=== PATIENT | female | born 1990 | race Caucasian/White ===

== ENCOUNTER 2021-09-17 16:35 | Outpatient (CLI) | payer OTHER, SELFPAY ==
--- NOTE | ~2021-09-17 | US_ITS ---
EXAMINATION: US venous doppler [facility] DATE: 09/17/2021 17:36 INDICATION: Bilateral lower limb swelling TECHNIQUE: Navarro scale images without and with compression and Doppler images of the bilateral lower e xtremity veins were obtained. COMPARISON: None FINDINGS: The right common femoral vein, profunda femoral vein, femoral vein, popliteal vein, peroneal trunk, p osterior tibial veins, and greater saphenous vein are patent. The left common femoral vein, profunda femoral vein, femoral vein, popliteal vein, peroneal trunk, po sterior tibial veins, and greater saphenous vein are patent. IMPRESSION: 1. Patent bilateral lower extremity veins. No evidence of deep venous thrombosis. Reviewed, dictated and finalized at location F. IMPRESSION: 1. Patent bilateral lower extremity veins. No evidence of deep venous thrombosi s.
== END 2021-09-17 16:36 | disposition home or self-care (01) ==
LOC: ANHIMG 16:44
PROVIDERS: PCP Family Medicine; Visit Provider Obstetrics & Gynecology
DX: R22.43 Localized swelling, mass and lump, lower limb, bilateral (principal)
CPT/HCPCS: 93970

== ENCOUNTER 2022-04-05 05:32 | Inpatient (IN) | payer OTHER, SELFPAY ==
[2022-04-05] VITALS (64 sets, daily range): BP systolic 75–155; BP diastolic 33–86; PULSE 60–170; TEMP 36.6; O2SAT 97–100; BMI 31.0
[2022-04-05 07:10] LABS: Basophils Percent Auto 0.2 % (0.2-1.2); Eosinophils Absolute Auto 0.1 K/mm3 (0-0.3); Eosinophils Percent Auto 0.5 % (0-4.4); Hematocrit 37.2 % (37.0-47.0); Hemoglobin 12.7 g/dL (12.0-15.0); Immature Granulocyte Absolute 0.09 K/mm3 (0.00-0.031); Immature Granulocyte Percent A 0.8 % (0-0.5); Lymphocytes Absolute Auto 2.08 K/mm3 (0.9-3.2); Lymphocytes Percent Auto 18.7 % (18.3-44.2); Mean Corpuscular HGB Conc 34.1 g/dl (32-36); Mean Corpuscular Hemoglobin 30.1 pg (26-34); Mean Corpuscular Volume 88.2 fl (80-100); Mean Platelet Volume 9.7 fl (7.4-10.4); Monocytes Percent Auto 8.6 % (2.6-8.5); Neutrophils Absolute Auto 7.9 K/mm3 (1.3-6.7); Neutrophils Percent Auto 71.2 % (45.5-73.1); Platelet Count Result 267 k/mm3 (150-375); Red Blood Count 4.22 M/mm3 (4.2-5.4); Red Cell Distribution Width 12.7 % (11.5-14.5); White Blood Count 11.1 K/mm3 (4.5-10.0)
--- NOTE | 2022-04-05 07:26 | PM.IMHP ---
H&P: HPI History of Present Illness Date/Time: 04/05/22 07:26 Chief Complaint: induction of labor Narrative: Adelita is a G1 at 39.6 for elective IOL. complicated by GBS pos, hypothyroidism, epilepsy (no sz this ), and COVID during . Review of Systems Review of Systems: All systems reviewed & are unremarkable except as noted in HPI and below PMFSH Family History Family History (Updated 03/08/22 @ 12:41 by Brenda Boss RN) Father Family history of seizure disorder Hypertension Grandparent Diabetes mellitus Social History Social History Smoking status: Former smoker Smoking end date: 04/18/13 Alcohol intake: current Substance use: never Spiritual care concerns: No Meds Home Medications and Allergies Home Medications Medication Instructions Recorded Confirmed Type aspirin 81 mg tablet,delayed 81 mg PO DAILY 03/08/22 03/08/22 History release (Isaac Low Dose Aspirin) levetiracetam 500 mg 500 mg PO BID 03/08/22 03/08/22 History tablet,extended release 24 hr (Keppra XR) levothyroxine 25 mcg capsule 25 mcg PO DAILY 03/08/22 03/08/22 History prenat.vits,dane,nsk-yacf-lgxbv 1 tablet PO DAILY 03/08/22 03/08/22 History vitamin K2 100 mcg capsule 100 mcg PO DAILY 03/08/22 03/08/22 History Allergies Allergy/AdvReac Type Severity Reaction Status Date / Time No Known Allergies Allergy Unknown Verified 03/08/22 12:35 Exam Const: General: no acute distress Resp: Effort & Inspection: normal respiratory effort Auscultation: clear to auscultation bilaterally Cardio: Rate: regular rate Rhythm: regular rhythm GI: GI Palp: Yes Soft to palpation Extrem: General: normal to inspection H&P: Results Labs Labs: Short CBC 04/05/22 Range/Units 06:46 WBC 11.1 H (4.5-10.0) K/mm3 Hgb 12.7 (12.0-15.0) g/dL Hct 37.2 (37.0-47.0) % Plt Count 267 (150-375) k/mm3 Assessment and Plan Assessment and plan (1) Encounter for induction of labor: Code(s): Z34.90 - Encounter for supervision of normal , unspecified, unspecified trimester Status: Acute (2) Epilepsy affecting , antepartum: Code(s): O99.350 - Diseases of the nervous system complicating , unspecified trimester; G40.909 - Epilepsy, unspecified, not intractable, without status epilepticus Status: Acute (3) Hypothyroidism: Code(s): E03.9 - Hypothyroidism, unspecified Status: Acute Plan cervidil GBS pos FHT category 1
[2022-04-05] MEDS: DINOPROSTONE 10 MG VAG INSERT VAGINAL (07:36)
[2022-04-05 09:18] LABS: Rapid Plasma Reagin Non-Reactive (NonReactive)
--- NOTE | 2022-04-05 09:43 | WPDANESEPP ---
Anes - Eval Pre Procedure Procedure: labor epidural Date/Time: 04/05/22 09:43 Surgeon: curt Preop Diagnosis: pain during labor Pre Op Diagnosis: IOL Patient Data Age: 31 Gender: F Height: 1.57 m Weight: 77 kg Last Vital Signs O2 Del Method Room Air 04/05/22 08:51 Allergies Allergy/AdvReac Type Severity Reaction Status Date / Time No Known Allergies Allergy Unknown Verified 03/08/22 12:35 Home Medications Medication Instructions Recorded Confirmed Type aspirin 81 mg tablet,delayed 81 mg PO DAILY 03/08/22 04/05/22 History release (Isaac Low Dose Aspirin) levetiracetam 500 mg 500 mg PO BID 03/08/22 04/05/22 History tablet,extended release 24 hr (Keppra XR) levothyroxine 25 mcg capsule 25 mcg PO DAILY 03/08/22 04/05/22 History prenat.vits,dane,gaa-epwv-jrowl 1 tablet PO DAILY 03/08/22 04/05/22 History vitamin K2 100 mcg capsule 100 mcg PO DAILY 03/08/22 04/05/22 History Laboratory Tests 04/05/22 04/05/22 04/05/22 06:46 06:46 06:46 WBC 11.1 K/mm3 H K/mm3 (4.5-10.0) RBC 4.22 M/mm3 M/mm3 (4.2-5.4) Hgb 12.7 g/dL g/dL (12.0-15.0) Hct 37.2 % % (37.0-47.0) MCV 88.2 fl fl (80-100) MCH 30.1 pg pg (26-34) MCHC 34.1 g/dl g/dl (32-36) RDW 12.7 % % (11.5-14.5) Plt Count 267 k/mm3 k/mm3 (150-375) MPV 9.7 fl fl (7.4-10.4) Immature Gran % (Auto) 0.8 % H % (0-0.5) Neut % (Auto) 71.2 % % (45.5-73.1) Lymph % (Auto) 18.7 % % (18.3-44.2) [place] % (Auto) 8.6 % H % (2.6-8.5) Eos % (Auto) 0.5 % % (0-4.4) Baso % (Auto) 0.2 % % (0.2-1.2) Lymph # (Auto) 2.08 K/mm3 K/mm3 (0.9-3.2) [place] # (Auto) 1.0 K/mm3 H K/mm3 (0.1-0.6) Eos # (Auto) 0.1 K/mm3 K/mm3 (0-0.3) Baso # (Auto) 0.0 K/mm3 K/mm3 (0.0-0.1) Abs Immat Gran (auto) 0.09 K/mm3 H K/mm3 (0.00-0.031) Absolute Neuts (auto) 7.9 K/mm3 H K/mm3 (1.3-6.7) Absolute Nucleated RBC 0.0 K/mm3 K/mm3 (0.0-0.012) Nucleated RBC % 0.0 % % (0.0-0.2) RPR Non-reactive (NonReactive) Blood Type A Positive Antibody Screen Negative Patient hx anesthesia problems: none Family hx anesthesia problems: none Results Review: All pre-operative results and documents have been reviewed as part of the pre-operative evaluation. [facility] Family History Family History (Updated 03/08/22 @ 12:41 by Brenda Boss RN) Father Family history of seizure disorder Hypertension Grandparent Diabetes mellitus Social History Social History Smoking packs per day: 0.5 Smoking cigarettes per day: 10.0 Years smoked: 10 Smoking pack-years: 5.00 Smoking status: Former smoker Tobacco type: cigarettes Second hand tobacco smoke exposure: No Smoking end date: 04/18/13 Alcohol intake: current Substance use: never Lack of Transportation: No Lack of Food: Never True Current Housing: I Have Housing Concerned About Future Housing: No Difficulty Paying Gas/Electric Bills: No Difficulty Paying for Meds: No Currently Unemployed: No Education: High School Diploma/GED Difficulty w/ Childcare or Family Care: No Spiritual care concerns: No Exam Day of Procedure 04/05/22 09:43
[2022-04-05] MEDS: FLUCONAZOLE 150 MG TABLET PO (13:17)
[2022-04-05] MEDS: AMPICILLIN 2 GM/NS 100 ML 2 GM/100 ML BAG IVPB (18:57)
[2022-04-05] MEDS: LACTATED RINGERS 1,000 ML 125 ML IV CONT ×3 (18:58→22:45)
[2022-04-05] MEDS: ONDANSETRON INJ 4 MG/2 ML VIAL IV PUSH (19:55)
--- NOTE | 2022-04-05 20:31 | PHAR ---
PT'S HOME MED LEVETIRACETAM ER 500 MG TABS VERIFIED BY PHARMACY
--- NOTE | 2022-04-05 21:04 | WPDANESEFPP ---
Anes - Eval Final PreProcedure Day of Procedure 04/05/22 21:04 Patient weight: normal Heart: regular rate and rhythm Lungs: clear to auscultation Airway: Mallampati scale class II Neurological: alert and oriented Last oral intake: 2 hours ASA classification: III Emergent: no Anesthetic plan: proceed Anesthesia type and monitoring: regional spinal Results Review: All pre-operative results and documents have been reviewed as part of the pre-operative evaluation. Informed Consent: The patient's anesthetic plan and its attendant risks and benefits were discussed with the patient/family/POA. Questions were solicited and answers provided to the satisfaction of the patient/family/POA.
--- NOTE | 2022-04-05 22:41 | WPDANESEPN ---
Anes - Epidural Procedure Note Date/Time: 04/05/22 22:41 Consent: I have discussed with the patient/family/POA, the placement of an epidural catheter and the use of epidural narcotic/local anesthetic for labor analgesia and/or postoperative pain management, including associated potential risks, benefits, complications and side effects. I have discussed alternative methods of labor analgesia and/or postoperative pain management. The patient/family/POA, understand(s) and wish(es) to proceed with epidural narcotic/local anesthetic for labor analgesia and/or postoperative pain management. Time-Out: A pre-procedural Time-Out was completed immediately before starting the procedure and confirmed: Patient Identification, Site, Procedure, Patient Position and the Availability of Requisite Equipment. Clinical Indications: pain during labor Epidural Insertion Note Patient position: sitting Skin prep: chlorhexidine and sterile drape Needle: 18g Tuohy-Schliff Catheter: 20g Unstyleted Technique: Loss of resistance. Level of insertion: L3/4 Catheter skin gisela (cm): 6 Skin anesthesia: lidocaine 1% Test dose: 1.5% Lidocaine with [id number] Epi, negative for subarachnoid Inj and negative for intravascular Inj Time of test dose: 22:18 Observations: tolerated well
[2022-04-05] MEDS: OXYTOCIN 30 UNITS/NS 500 ML 30 UNITS/500 ML BAG IV CONT (22:49)
[2022-04-05] MEDS: AMPICILLIN 1 GM/NS 50 ML 1 GM/50 ML BAG IVPB (23:34)
[2022-04-06] VITALS (71 sets, daily range): BP systolic 59–127; BP diastolic 29–90; PULSE 64–224; RESP 16–18; TEMP 36.5–37; O2SAT 96–100
[2022-04-06] MEDS: OXYTOCIN 30 UNITS/NS 500 ML 30 UNITS/500 ML BAG 125 UNITS IV CONT (03:49)
--- NOTE | 2022-04-06 03:53 | PM.OBPRVD ---
OB - Delivery Note Procedure Delivery date: 04/06/22 Procedure: Events: Positive Group B Strep (GBS) and Other (epilepsy) Induction method: Per Pitocin Protocol and Per Cervidil Protocol Delivery monitor: External FHT and External Uterine Route of delivery: Laceration Description: Perineal - 1st Degree Delivery repair: vicryl Quantitative Blood Loss (ml): 260 Anesthesia type: Epidural Disposition: Floor Narrative: With adequate expulsive efforts by the mother, the baby's head was delivered OA. The baby's anterior shoulder was delivered under the pubic symphysis without difficulty. The posterior shoulder and the rest of the baby delivered without difficulty. The was placed on the mothers chest and suctioned and stimulated. The cord was clamped and cut after 30 seconds. Mother and baby both stable. [place] Baby Date of : 04/06/22 Time of : 03:15 Weeks of gestation at delivery: 39 gender: Female Weight (pounds): 7 Weight (ounces): 3 presentation: vertex Placenta delivery description: Spontaneous Cord Vessel Description: 3 Vessels and Delayed Cord Clamping score one minute: 8 score five minutes: 9
[2022-04-06] MEDS: IBUPROFEN 600 MG TABLET PO ×3 (05:53→19:50)
[2022-04-06] MEDS: WITCH HAZEL 40 PADS 1 PAD TOPICAL (05:53)
[2022-04-06] MEDS: BENZOCAINE 20% AER SPR (*SP) 56 GM CAN 1 SPRAY TOPICAL (05:53)
--- NOTE | 2022-04-06 06:10 | PC.NURSE ---
Patient transferred to post room #285 via wheelchair. Support person present. Oriented to unit, room, information board, rooming in, admission packet and security measures. Patient verbalizes understanding.
[2022-04-06] MEDS: ACETAMINOPHEN 325 MG TABLET 650 MG PO ×3 (07:31→23:00)
[2022-04-06] MEDS: LEVOTHYROXINE SODIUM 25 MCG TABLET PO (07:31)
[2022-04-07] MEDS: IBUPROFEN 600 MG TABLET PO (03:40)
[2022-04-07 05:37] LABS: Hematocrit 28.3 % (37.0-47.0); Hemoglobin 9.3 g/dL (12.0-15.0)
--- NOTE | 2022-04-07 07:04 | PM.OBPNVD ---
OB - PN: Subj Subjective Date/time seen: 04/07/22 07:04 Patient comments: no complaints and pain well controlled baby status: doing well and bottle feeding well Narrative: would like DC home today OB - PN: Obj Data Labs 04/07/22 03:48 Labs: Laboratory Results - last 24 hr 04/07/22 03:48 Hgb 9.3 L D Hct 28.3 L OB - PN A/P Plan day: 1 Plan: routine care and discharge home Time Spent With Patient Time: Total time spent is greater than 50% in coordination of care (as documented) at patient's floor/unit and/or counseling patient: Time with patient: less than 15 minutes Exam Narrative: NAD abdomen soft, nontender, fundus firm below the umbilicus Extremities nontender, 1+ edema
--- NOTE | 2022-04-07 07:06 | PM.OBDSVD ---
DS: Admitting Diagnosis Discharge Date 04/07/22 Admitting Diagnosis term IUP DS: Discharge Diagnosis Discharge Diagnosis (1) Epilepsy affecting , antepartum: Code(s): O99.350 - Diseases of the nervous system complicating , unspecified trimester; G40.909 - Epilepsy, unspecified, not intractable, without status epilepticus Status: Acute (2) , delivered: Code(s): O80 - Encounter for full-term uncomplicated delivery Status: Acute OB - DS: Summary Hospital Course Hospital Course: Adelita was admitted for elective induction of labor at term. She proceeded to have an uncomplicated vaginal delivery and course and was discharged home on PPD1. OB Procedures : Ultrasound OB Procedures Intrapartum: Spontaneous Vag Delivery OB Procedures: : None Peripartum Data Delivery Method: Natural Vaginal complications: none Status at Discharge Functional status at discharge: independent ambulation Time Spent with Patient Time attestation: Total time spent providing and/or coordinating discharge services: Exam Narrative: NAD abdomen soft, appropriately tender Ext non tender, 1+ edema DS: Data Data Completed and Pending Labs on day of discharge: Labs from last 24 hours 04/07/22 03:48 Hgb 9.3 L D Hct 28.3 L Discharge Plan Discharge Attending physician on discharge: Parisa Wilkinson Discharging Clinician: Parisa Wilkinson Anticipated Discharge Date/Time: 04/07/22 07:05 Patient Disposition: Home, Self-Care Activity: pelvic rest Diet: regular Patient Instructions: Antibiotic Form Stand Alone Forms: General Discharge Information Follow-up/Referrals: Parisa Wilkinson MD [Physician] - 4 Weeks Discharge Medications: Continued #2 Tablet 1 tablet PO DAILY levetiracetam [Keppra XR] 500 mg Tablet Extended Release 24 Hr 500 mg PO BID levothyroxine 25 mcg Capsule 25 mcg PO DAILY Discontinued aspirin [Isaac Low Dose Aspirin] 81 mg Tablet,Delayed Release (Dr/Ec) 81 mg PO DAILY vitamin K2 100 mcg Capsule 100 mcg PO DAILY Date of admission: 04/05/22 05:32 Primary Care Provider: Vicky Rodgers Admitting Provider: Parisa Wilkinson Attending physician on admission: Parisa Wilkinson Condition: Stable
[2022-04-07] MEDS: ACETAMINOPHEN 325 MG TABLET 650 MG PO (07:30)
[2022-04-07] MEDS: POLYSACCHARIDE IRON COMPLEX 150 MG CAPSULE PO (07:30)
[2022-04-07] MEDS: DOCUSATE SODIUM 100 MG CAPSULE PO (07:30)
[2022-04-07] MEDS: LEVOTHYROXINE SODIUM 25 MCG TABLET PO (07:31)
--- NOTE | 2022-04-07 07:33 | WPDANLDPN2 ---
Anes-Prog Note L&D Date/Time: 04/07/22 07:33 Comfortable throughout: labor and delivery Neuraxial method: epidural Epidural/Spinal procedure site: clean & non-tender Neuro status: Neuro function grossly intact. Cardiovascular status: normal Respiratory status: normal Airway patency: baseline Mental status: baseline Post-Op hydration status: normal Vital Signs: Last Vital Signs Temp 36.6 C 04/06/22 23:00 Pulse 85 04/06/22 23:00 Resp 18 04/06/22 23:00 BP 113/52 L 04/06/22 23:00 Pulse Ox 98 04/06/22 15:45 O2 Del Method Room Air 04/06/22 19:50 Pain score (VAS): 2 I/O: Intake & Output 04/06/22 04/06/22 04/07/22 15:59 23:59 07:59 Intake Total 480 400 Balance 480 400 Post-procedural complaints: none Patient feedback: Patient satisfied with anesthetic care.
[2022-04-07 08:00] VITALS: BP 119/55; PULSE 72; RESP 16; TEMP 37.1; O2SAT 99
--- NOTE | 2022-04-07 10:03 | PC.NURSE ---
Patient viewed the discharge video Mother & Baby Care, The First Two Weeks . Patient was given the opportunity and encouraged to ask questions. Patient verbalized understanding of information shared and has been given the mother/baby guide for home reference.
[2022-04-09 12:20] VITALS: BP 121/68; PULSE 93; RESP 16; TEMP 36.7; O2SAT 99
== END 2022-04-07 14:26 | disposition home or self-care (01) | DRG 807 ==
LOC: ANHLDR 05:49 → ANHOB2 04-06 06:18
PROVIDERS: Admitting Provider Obstetrics & Gynecology; PCP Family Medicine; Visit Provider Obstetrics & Gynecology
DX: O99.284 Endocrine, nutritional and metabolic diseases complicating childbirth (principal); Z37.0 Single live birth; Z3A.40 40 weeks gestation of pregnancy; E03.9 Hypothyroidism, unspecified; O99.824 Streptococcus B carrier state complicating childbirth; O70.0 First degree perineal laceration during delivery; O99.354 Diseases of the nervous system complicating childbirth; G40.909 Epilepsy, unspecified, not intractable, without status epilepticus; O69.81X0 Labor and delivery complicated by cord around neck, without compression, not applicable or unspecified
CPT/HCPCS: 36415; 84112; 85014; 85018; 85025; 86592; 86850; 86900; 86901; A9270; J0290; J2405; J2590; J2795; J7120